=== PATIENT | male | born 1985 | race Caucasian/White ===

== ENCOUNTER → 2018-12-12 09:40 | Outpatient (CLI) | payer BC ==
[2016-08-02 06:04] VITALS: BMI 35.7
[~2018-12-12 09:40] MED LIST: HYDROCODONE-APA1 TAB PO
[2018-12-14 06:13] LABS: TESTOSTERONE - FREE 4.1 pg/mL (8.7-25.1); TESTOSTERONE - SERUM 293 ng/dL (264-916)
== END | disposition home or self-care (01) ==
LOC: D.LAB 09:40
PROVIDERS: ATTEND Urology
DX: R53.83 Other fatigue (principal)

== ENCOUNTER → 2019-01-16 09:04 | Outpatient (CLI) | payer BC ==
[2016-08-02 06:04] VITALS: BMI 35.7
[2019-01-18 06:12] LABS: TESTOSTERONE - FREE 6.5 pg/mL (8.7-25.1); TESTOSTERONE - SERUM 348 ng/dL (264-916)
== END | disposition home or self-care (01) ==
LOC: D.LAB 09:04
PROVIDERS: ATTEND Urology
DX: R78.89 Finding of other specified substances, not normally found in blood (principal)

== ENCOUNTER → 2019-02-18 09:56 | Outpatient (CLI) | payer BC ==
[2016-08-02 06:04] VITALS: BMI 35.7
[2019-02-19 13:11] LABS: PSA - % FREE 46.7 % (()); PSA - FREE 0.14 ng/mL; PSA - TOTAL 0.3 ng/mL (0.0-4.0)
[2019-02-24 19:06] LABS: TESTOSTERONE - SERUM 443 ng/dL (264-916)
== END | disposition home or self-care (01) ==
LOC: D.LAB 09:56
PROVIDERS: ATTEND Urology
DX: E29.1 Testicular hypofunction (principal)